=== PATIENT | female | born 1975 | race Caucasian/White ===

== ENCOUNTER 2022-11-29 12:25 | Outpatient (CLI) | payer OTHER | END 2022-11-29 12:26 | disposition home or self-care (01) | LOC: CSHLAB 12:25 | PROVIDERS: ATTEND Obstetrics & Gynecology | DX: Z01.818 Encounter for other preprocedural examination (principal); N92.0 Excessive and frequent menstruation with regular cycle | CPT/HCPCS: 80048; 84703; 85027; 86850; 86900; 86901; 93005; 93010 ==

== ENCOUNTER 2022-12-02 06:04 | Day surgery (SDC) | payer OTHER ==
[2022-11-29 09:03] VITALS: BMI 25.1
[2022-11-29 13:28] LABS: Mean Corpuscular HGB CONC 34.7 g/dL (32.0-36.0); Mean Corpuscular Hemoglobin 32.1 pg (27.0-33.0); Mean Corpuscular Volume 92.6 fl (81.6-98.3); Mean Platelet Volume 9.4 fl (7.4-10.4); Platelet Count 345 10x3/uL (150-450); RBC Distribution Width 13.1 % (11.5-14.5); Red Blood Cell (RBC) Count 4.05 10x6/uL (3.90-5.03); White Blood Cell (WBC) Count 6.5 10x3/uL (3.5-10.5)
[2022-11-29 13:34] LABS: Anion Gap 12 mmol/L (10-20); BUN (Urea Nitrogen) 11 mg/dL (7.0-18.7); Calc. Creatinine Clearance 0 mL/min (70-130); Calcium 9.3 mg/dL (7.8-10.44); Carbon Dioxide 28 mmol/L (22-29); Chloride 102 mmol/L (98-107); Estimated GFR 111; Glucose 98 mg/dL (70-105); Potassium 3.4 mmol/L (3.5-5.1); Sodium 139 mmol/L (136-145)
[2022-11-29 13:39] LABS: BHCG - Serum Negative (NEGATIVE); Pregs Control Background? CLEAR/WHITE (CLR/WHITE); Pregs Control Bar Appear? YES (CONTROL BAR)
[2022-12-02] MEDS ORDERED: Lidocaine 1% PF 5 ML VIAL ONE (06:52)
[2022-12-02] MEDS ORDERED: PROPOFOL 20 ML ONE (06:52)
[2022-12-02] MEDS ORDERED: Fentanyl 100 MCG/2 ML VIAL ONE (06:52)
[2022-12-02] MEDS ORDERED: Ondansetron PF 4 MG/2 ML Vial ONE (06:52)
[2022-12-02] MEDS ORDERED: Dexamethasone 4 mg/ml Vial ONE (06:52)
[2022-12-02] MEDS ORDERED: CEFAZOLIN 2 GM VIAL ONE (07:03)
[2022-12-02] MEDS ORDERED: Scopolamine 1.5 mg/72 hour Patch ONE (07:14)
[2022-12-02] MEDS ORDERED: Promethazine HCl 25 MG/ML VIAL ONE (07:18)
[2022-12-02] MEDS ORDERED: PHENYLEPHRINE-NS 100 MCG/ML 10 ML SYRINGE ONE (07:48)
[2022-12-02] MEDS ORDERED: Ketorolac Tromethamine 30 MG/ML VIAL ONE (08:36)
== END 2022-12-02 09:20 | disposition home or self-care (01) ==
LOC: CSHSDC 06:04
PROVIDERS: ATTEND Obstetrics & Gynecology
PROC: 0UDB8ZZ Extraction of Endometrium, Via Natural or Artificial Opening Endoscopic (ICD-10-PCS; principal; 2022-12-02)
DX: N84.1 Polyp of cervix uteri (principal); D25.9 Leiomyoma of uterus, unspecified; Z87.42 Personal history of other diseases of the female genital tract; Z30.431 Encounter for routine checking of intrauterine contraceptive device; E06.3 Autoimmune thyroiditis; Z79.899 Other long term (current) drug therapy; I10 Essential (primary) hypertension
CPT/HCPCS: 80048; 84703; 85027; 86850; 86900; 86901; 88305; J1100; J1885; J2405; J2550; J2704; J3010